=== PATIENT | male | born 1995 | race Caucasian/White ===

== ENCOUNTER 2023-12-05 12:37 | Emergency (ER) | payer BC | END 2023-12-05 14:35 | disposition home or self-care (01) | LOC: FB.ED 12:37 | DX: J20.9 Acute bronchitis, unspecified (principal); J02.9 Acute pharyngitis, unspecified; R05.9 Cough, unspecified; R04.2 Hemoptysis | CPT/HCPCS: 87651-QW; 93005; 93010; 99284; 99285 ==

== ENCOUNTER 2024-03-25 12:47 | Emergency (ER) | payer BC ==
[2024-03-25] MEDS: Ketorolac 30 MG/ML SDV IM ONE (14:14)
[2024-03-25] MEDS: cefTRIAXone 1 GM Vial IM ONE (14:14)
[2024-03-26] MEDS ORDERED: Azithromycin 250 MG Tab PO SCH (09:00)
== END 2024-03-25 14:35 | disposition home or self-care (01) ==
LOC: FB.ED 12:47
DX: L05.91 Pilonidal cyst without abscess (principal)
CPT/HCPCS: 96372; 99283; J0696; J1885